=== PATIENT | male | born 1960 | race Caucasian/White ===

== ENCOUNTER 2016-07-17 07:35 | Emergency (ER) | payer SELFPAY ==
[~2016-07-17] VITALS: Ht 162.6 cm; Wt 64.5 kg
[~2016-07-17 07:35] MED LIST: HYOS0.129 PO; PROT40TA PO
[2016-07-17 07:43] VITALS: BP 123/93; PULSE 118; RESP 16; TEMP 97.6; O2SAT 96
[2016-07-17] MEDS ORDERED: ACETAMINOPHEN/HYDROcodone 325 MG/5 MG TAB PO ONE (08:30)
[2016-07-17] MEDS ORDERED: NAPROXEN 500 MG TAB PO ONE (08:30)
[2016-07-17] MEDS ORDERED: HYDR-3533 PO (08:41)
[2016-07-17] MEDS ORDERED: NAPR500 PO (08:41)
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
--- NOTE | 2016-07-17 09:04 | RADHPO ---
EXAM DATE/TIME: 07/17/2016 08:33 [place] COMPARISON: No previous studies available for comparison. INDICATIONS : Right shoulder pain, limited ROM , from fall 1 week ago MEDICAL HISTORY : torn rotator cuff SURGICAL HISTORY : None. ENCOUNTER: Initial ACUITY: 1 week PAIN SCORE: 10/10 LOCATION: Right shoulder FINDINGS: Multiple view examination of the right shoulder demonstrates no evidence of fracture or dislocation. The glenohumeral and acromioclavicular joints are maintained. There is normal range of motion betwe en internal and external rotation. Bony mineralization is normal. CONCLUSION: No acute fracture. Teofilo Barakat MD on July 17, 2016 at 9:02 Board Certified Radiologist. This report was verified electronically.
== END 2016-07-17 09:24 | disposition home or self-care (01) ==
LOC: PHED 07:35
DX: S49.91XA Unspecified injury of right shoulder and upper arm, initial encounter (principal); F17.210 Nicotine dependence, cigarettes, uncomplicated; W18.09XA Striking against other object with subsequent fall, initial encounter
CPT/HCPCS: 73030; 99283

== ENCOUNTER 2016-11-30 14:00 | Emergency (ER) | payer SELFPAY ==
[~2016-11-30] VITALS: Ht 165.1 cm; Wt 62.6 kg
[~2016-11-30 14:00] MED LIST changes: +HYDR-3533 PO; -HYOS0.129 PO; +NAPR500 PO; -PROT40TA PO
[2016-11-30 14:02] VITALS: BP 128/85; PULSE 129; RESP 16; TEMP 98.4; O2SAT 98
[2016-11-30 14:14] VITALS: BP 152/87; PULSE 123; RESP 20; O2SAT 96; O2SAT 98
[2016-11-30] MEDS ORDERED: SODIUM CHLOR 0.9% 1000 ML INJ 1,000 ML IV SCH (14:27)
[2016-11-30] MEDS ORDERED: SODIUM CHLORIDE 0.9% FLUSH 10 ML FLUSH IV FLUSH PRN (14:30)
--- NOTE | 2016-11-30 14:32 | PD ---
HPI Chief Complaint: Pain: Acute or Chronic Time Seen by Provider: 14:20 Travel History International Travel<30 days: No Contact w/Intl Traveler<30days: No Traveled to known affect area: No History of Present Illness HPI 55-year-old male here for evaluation of carpal pedal spasms. Patient reports spasms in his lower extremities for the last 2-3 months which have been intermittent. Over the last 2 weeks he has been experiencing them in his hands and forearms, worse over the last couple of days. Today he was more concerned because he started feeling spasm sensation in his neck and chest yesterday evening which is also intermittent. Patient used to drink about a pint of whiskey daily, however stopped drinking 4 days ago. He also used to take Lortab frequently, and stopped 10 days ago. He denies using any other illicit drugs. He does smoke about a pack of cigarettes daily. No fevers or recent illness. PFSH Past Medical History Hx Anticoagulant Therapy: No Anxiety: Yes Depression: Yes Diabetes: No Diminished Hearing: No Gastrointestinal Disorders: No Musculoskeletal: Yes (BILAT CARPAL TUNNEL, LOWER BACK INJURY CORRECTION) Immunizations Current: Yes Tetanus Vaccination: > 5 Years Influenza Vaccination: No Past Surgical History Abdominal Surgery: No Neurologic Surgery: No Other Surgery: Yes ("left carpal tunnel") Social History Alcohol Use: Yes (DAILY NOT FOR 5 DAYS) Tobacco Use: Yes (1 PPD) Substance Use: Yes (OPIATES) Allergies-Medications (Allergen,Severity, Reaction): Coded Allergies: Codeine (Verified Adverse Reaction, Intermediate, Hives, 11/30/16) Reported Meds & Prescriptions Reported Meds & Active Scripts Active No Active Prescriptions or Reported Medications Review of Systems Except as stated in HPI: all other systems reviewed are Neg Physical Exam Narrative GENERAL: Well-developed, well-nourished, no apparent distress. SKIN: Focused skin assessment warm/dry. No rash. HEAD: Atraumatic. Normocephalic. EYES: Pupils equal and round. No scleral icterus. No injection or drainage. ENT: Mucous membranes pink and moist. NECK: Trachea midline. No JVD. CARDIOVASCULAR: Regular rate and rhythm. Distal pulses brisk and equal bilaterally. RESPIRATORY: No accessory muscle use. Clear to auscultation. Breath sounds equal bilaterally. GASTROINTESTINAL: Abdomen soft, non-tender, nondistended. MUSCULOSKELETAL: No obvious deformities. No clubbing. No cyanosis. No edema. NEUROLOGICAL: Awake and alert. No obvious cranial nerve deficits. Motor grossly within normal limits. Normal speech. PSYCHIATRIC: Appropriate mood and affect; insight and judgment normal. Data Data Last Documented VS Vital Signs Date Time Temp Pulse Resp B/P Pulse Ox O2 Delivery O2 Flow Rate FiO2 11/30/16 15:27 91 18 152/87 98 Room Air 11/30/16 14:02 98.4 Orders Complete Blood Count With Diff (11/30/16 14:27) Comprehensive Metabolic Panel (11/30/16 14:27) Iv Access Insert/Monitor (11/30/16 14:27) Ecg Monitoring (11/30/16 14:27) Oximetry (11/30/16 14:27) Sodium Chlor 0.9% 1000 Ml Inj (Ns 1000 M (11/30/16 14:27) Sodium Chloride 0.9% Flush (Ns Flush) (11/30/16 14:30) Electrocardiogram (11/30/16 14:27) Magnesium (Mg) (11/30/16 14:27) Thyroid Stimulating Hormone (11/30/16 14:27) Alcohol (Ethanol) (11/30/16 14:27) Drug Screen, Random Urine (11/30/16 14:27) Ckmb (Isoenzyme) Profile (11/30/16 14:27) Troponin I (11/30/16 14:27) CKMB (11/30/16 14:30) CKMB% (11/30/16 14:30) Sodium Chlor 0.9% 1000 Ml Inj (Ns 1000 M (11/30/16 15:15) Labs Laboratory Tests Test 11/30/16 11/30/16 14:30 14:40 White Blood Count 7.3 TH/MM3 Red Blood Count 4.07 MIL/MM3 Hemoglobin 13.6 GM/DL Hematocrit 41.0 % Mean Corpuscular Volume 100.8 FL Mean Corpuscular Hemoglobin 33.4 PG Mean Corpuscular Hemoglobin 33.1 % Concent Red Cell Distribution Width 12.5 % Platelet Count 129 TH/MM3 Mean Platelet Volume 8.5 FL Neutrophils (%) (Auto) 50.1 % Lymphocytes (%) (Auto) 29.6 % Monocytes (%) (Auto) 18.9 % Eosinophils (%) (Auto) 0.4 % Basophils (%) (Auto) 1.0 % Neutrophils # (Auto) 3.6 TH/MM3 Lymphocytes # (Auto) 2.2 TH/MM3 Monocytes # (Auto) 1.4 TH/MM3 Eosinophils # (Auto) 0.0 TH/MM3 Basophils # (Auto) 0.1 TH/MM3 CBC Comment DIFF FINAL Differential Comment Sodium Level 140 MEQ/L Potassium Level 3.7 MEQ/L Chloride Level 106 MEQ/L Carbon Dioxide Level 22.1 MEQ/L Anion Gap 12 MEQ/L Blood Urea Nitrogen 7 MG/DL Creatinine 0.77 MG/DL Estimat Glomerular Filtration 106 ML/MIN Rate Random Glucose 95 MG/DL Calcium Level 8.9 MG/DL Magnesium Level 2.3 MG/DL Total Bilirubin 1.2 MG/DL Aspartate Amino Transf 176 U/L (AST/SGOT) Alanine Aminotransferase 110 U/L (ALT/SGPT) Alkaline Phosphatase 103 U/L Total Creatine Kinase 189 U/L Creatine Kinase MB 3.0 NG/ML Troponin I LESS THAN 0.02 NG/ML Total Protein 8.5 GM/DL Albumin 3.5 GM/DL Thyroid Stimulating Hormone 0.462 uIU/ML 3rd Gen Ethyl Alcohol Level LESS THAN 3 MG/DL Urine Opiates Screen NEG Urine Barbiturates Screen NEG Urine Amphetamines Screen NEG Urine Benzodiazepines Screen NEG Urine Cocaine Screen NEG Urine Cannabinoids Screen NEG MDM Medical Decision Making Medical Screen Exam Complete: Yes Emergency Medical Condition: Yes Medical Record Reviewed: Yes Interpretation(s) EKG: Sinus, rate 97, normal axis, normal intervals, no acute ischemic abnormality. Differential Diagnosis Carpal pedal spasms, metabolic abnormality, anxiety, ACS less likely, etoh withdrawal Narrative Course Initial vital signs show heart rate 129, blood pressure 128/85, pulse ox 98% on room air, oral temp of 98.4F. CBC shows WBC 7.3, hemoglobin 13.6, hematocrit 41, platelets 129, MCV 100.8. CMP is remarkable for TB bili 1.2, AST 176, ALT 110, otherwise unremarkable. Cardiac enzymes are negative. TSH is 0.62. Urine drug screen is negative for all drugs tested. Alcohol level is negative. Patient was made aware of all findings. He is resting comfortably. He did have a couple episodes of carpal and pedal spasms while in the emergency department. His heart rate improved from 129 to 88 after a liter of normal saline IV. He is not splinting any physical signs of alcohol withdrawal. I do not believe his symptoms are cardiac related. He is overall very well- appearing. He is stable for discharge home with outpatient follow-up with a primary care physician this week. I'll give him a prescription for Ativan should he experience further episodes of carpal pedal spasms or alcohol withdrawal symptoms. He was informed on when to return to the emergency department. He verbalizes understanding and agreement with plan. Diagnosis Primary Impression: Spasms of the hands or feet Referrals: Primary Care Physician 3 days Additional Instructions: Follow-up with a primary care physician this week. Stay hydrated with plenty of fluids. Return to the emergency department for worsening symptoms or any other concerns. Scripts Lorazepam (Ativan)0.5 Mg Tab0.5 Mg PO Q8H PRN (ANXIETY AND/OR AGITATION) #12 TAB Ref 0 Prov:Edil Jacinto MD 11/30/16 Disposition: 01 DISCHARGE HOME Condition: Stable Edil Jacinto MD Nov 30, 2016 14:32
[2016-11-30 14:47] LABS: AUTOMATED NEUTROPHIL # 3.6 TH/MM3 (1.8-7.7); BASOPHIL # 0.1 TH/MM3 (0-0.2); EOSINOPHIL % 0.4 % (0.0-4.0); HEMO FLAGS DIFF FINAL; LYMPH % 29.6 % (9.0-44.0); LYMPHOCYTE # 2.2 TH/MM3 (1.0-4.8); MEAN CELL VOLUME 100.8 FL (80.0-100.0); MEAN CORPUSCULAR HEMOGLOBIN 33.4 PG (27.0-34.0); MEAN CORPUSCULAR HGB CONC 33.1 % (32.0-36.0); MONO % 18.9 % (0.0-8.0); NEUT % 50.1 % (16.0-70.0); PLATELET COUNT 129 TH/MM3 (150-450); RED BLOOD COUNT 4.07 MIL/MM3 (4.50-5.90); RED CELL DISTRIBUTION WIDTH 12.5 % (11.6-17.2); WHITE BLOOD COUNT 7.3 TH/MM3 (4.0-11.0)
[2016-11-30 14:56] LABS: CHLORIDE 106 MEQ/L (98-107); POTASSIUM 3.7 MEQ/L (3.5-5.1); SODIUM (NA) 140 MEQ/L (136-145)
[2016-11-30 14:58] LABS: AMPHETAMINE, URINE NEG (NEG); BARBITURATES, URINE NEG (NEG)
[2016-11-30 14:59] LABS: COCAINE, URINE NEG (NEG)
[2016-11-30 15:00] LABS: ANION GAP 12 MEQ/L (5-15); BICARBONATE 22.1 MEQ/L (21.0-32.0); BLOOD UREA NITROGEN 7 MG/DL (7-18); MAGNESIUM 2.3 MG/DL (1.5-2.5)
[2016-11-30 15:03] LABS: ALT (GPT) 110 U/L (12-78); AST (GOT) 176 U/L (15-37); GLOMERULAR FILTRATION RATE 106 ML/MIN (>89)
[2016-11-30 15:04] LABS: TOTAL BILIRUBIN ADULT 1.2 MG/DL (0.2-1.0)
[2016-11-30 15:05] LABS: CREATINE KINASE 189 U/L (39-308)
[2016-11-30 15:06] LABS: ALKALINE PHOSPHATASE 103 U/L (45-117)
[2016-11-30] MEDS ORDERED: SODIUM CHLOR 0.9% 1000 ML INJ 1,000 ML IV ONE (15:15)
[2016-11-30 15:27] VITALS: BP 152/87; PULSE 91; RESP 18; O2SAT 98
[2016-11-30] MEDS ORDERED: LORA-392 PO (15:47)
[2016-11-30 16:02] VITALS: BP 145/82; PULSE 87; RESP 18; O2SAT 100
--- NOTE | 2016-11-30 16:44 | EKG ---
Date Performed: 11/30/2016 Time Performed: 14:52:35 PTAGE: 55 years EKG: Sinus rhythm NORMAL ECG PREVIOUS TRACING : 02/26/2014 10.14 No significant change from previous tracing noted. DOCTOR: Adriano England Interpretating Date/Time 11/30/2016 16:42:57
== END 2016-11-30 16:20 | disposition home or self-care (01) ==
LOC: PHED 14:00
DX: M62.838 Other muscle spasm (principal); F17.210 Nicotine dependence, cigarettes, uncomplicated; G56.03 Carpal tunnel syndrome, bilateral upper limbs
CPT/HCPCS: 80053; 80307; 82550; 82552; 83735; 84443; 84484; 85025; 93005; 96360; 96361; 99284; J7030

== ENCOUNTER 2017-01-27 14:41 | Emergency (ER) | payer SELFPAY ==
[~2017-01-27] VITALS: Ht 162.6 cm; Wt 62.0 kg
[~2017-01-27 14:41] MED LIST changes: -HYDR-3533 PO; +LORA-392 PO; -NAPR500 PO
[2017-01-27 14:43] VITALS: BP 149/82; PULSE 135; RESP 16; TEMP 99; O2SAT 100
[2017-01-27 14:45] VITALS: BP 139/102; O2SAT 95
--- NOTE | 2017-01-27 14:46 | PD ---
Physical Exam Date Seen by Provider: Jan 27, 2017 Time Seen by Provider: 14:46 Narrative 56 YOWM MED CLEARANCE FOR DETOX VS REVIEWED WAITING FOR BED PLACEMENT Data Data Last Documented VS Vital Signs Date Time Temp Pulse Resp B/P Pulse Ox O2 Delivery O2 Flow Rate FiO2 01/27/17 14:43 99.0 135 16 149/82 100 MDM Supervised Visit with MONA: Sherif Guardado Jan 27, 2017 14:46
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
[2017-01-27] MEDS ORDERED: KETOROLAC TROMETHAMINE 30 MG/ML (IVP) VIAL IV PUSH ONE (17:00)
[2017-01-27] MEDS ORDERED: NORC5TAB PO (17:00)
[2017-01-27] MEDS ORDERED: SODIUM CHLOR 0.9% 1000 ML INJ 1,000 ML IV ONE (17:00)
[2017-01-27 17:50] LABS: BLOOD, URINE MOD (NEG); COMMENT (UR) CULT NOT INDICATED; CULTURE IF INDICATED CULT NOT INDICATED; GLUCOSE,URINE NEG (NEG); HYALINE CAST, URINE 16 /lpf (RARE); KETONE, URINE NEG (NEG); MUCUS URINE FEW /lpf (OCC); NITRITE,URINE NEG (NEG); PH, URINE 5.5 (5.0-8.5); URINE COLOR YELLOW (YELLW/STRAW)
[2017-01-27 18:17] LABS: ANION GAP 7 MEQ/L (5-15); AST (GOT) 181 U/L (15-37); BICARBONATE 29.8 MEQ/L (21.0-32.0); BLOOD UREA NITROGEN 4 MG/DL (7-18); CHLORIDE 102 MEQ/L (98-107); GLOMERULAR FILTRATION RATE 122 ML/MIN (>89); SODIUM (NA) 139 MEQ/L (136-145)
[2017-01-27 18:18] LABS: ALT (GPT) 75 U/L (12-78)
[2017-01-27 18:20] LABS: ALKALINE PHOSPHATASE 93 U/L (45-117); TOTAL BILIRUBIN ADULT 0.8 MG/DL (0.2-1.0)
[2017-01-27 18:26] LABS: ALCOHOL 256 MG/DL (0-5)
[2017-01-27 18:30] LABS: BASOPHIL # 0.1 TH/MM3 (0-0.2); EOSINOPHIL # 0.1 TH/MM3 (0-0.4); EOSINOPHIL % 1.3 % (0.0-4.0); HEMATOCRIT 44.4 % (39.0-51.0); HEMO FLAGS AUTO DIFF; LYMPH % 39.4 % (9.0-44.0); LYMPHOCYTE # 2.5 TH/MM3 (1.0-4.8); MEAN CELL VOLUME 96.7 FL (80.0-100.0); MEAN CORPUSCULAR HEMOGLOBIN 33.9 PG (27.0-34.0); MEAN CORPUSCULAR HGB CONC 35.1 % (32.0-36.0); MONO % 12.1 % (0.0-8.0); NEUT % 46.2 % (16.0-70.0); PLATELET COUNT 50 TH/MM3 (150-450); RED BLOOD COUNT 4.59 MIL/MM3 (4.50-5.90); WHITE BLOOD COUNT 6.4 TH/MM3 (4.0-11.0)
[2017-01-27 18:42] LABS: PLATELET ESTIMATE SMEAR LOW (NORMAL); PLATELET MORPHOLOGY NORMAL (NORMAL); SCAN/DIFF AUTO DIFF CONFIRMED
[2017-01-27 18:43] VITALS: BP 172/111; PULSE 104; RESP 16; O2SAT 98
[2017-01-27] MEDS ORDERED: POTASSIUM CHLORIDE 10 MEQ CONTROLLED RELEASE TAB PO ONE (19:00)
== END 2017-01-27 19:39 | disposition home or self-care (01) ==
LOC: NEPD 14:41
DX: F10.10 Alcohol abuse, uncomplicated (principal); E87.6 Hypokalemia; R31.9 Hematuria, unspecified; M25.511 Pain in right shoulder; F41.9 Anxiety disorder, unspecified; F32.9 Major depressive disorder, single episode, unspecified; F17.200 Nicotine dependence, unspecified, uncomplicated
CPT/HCPCS: 80053; 80307; 81001; 85025; 96361; 96374; 99284; J1885; J7030

== ENCOUNTER 2017-02-16 00:23 | Emergency (ER) | payer OTHER ==
[~2017-02-16 00:23] MED LIST changes: -LORA-392 PO; +NORC5TAB PO
[2017-02-16 00:43] VITALS: BP 143/97; PULSE 79; RESP 18; TEMP 98
[2017-02-16 01:08] VITALS: BP 149/94; PULSE 104; RESP 20; TEMP 98.1; O2SAT 96
[2017-02-16] MEDS ORDERED: KETOROLAC TROMETHAMINE 60 MG/2 ML (IM) VIAL IM ONE (01:30)
[2017-02-16 01:34] LABS: AUTOMATED NEUTROPHIL # 3.6 TH/MM3 (1.8-7.7); BASOPHIL # 0.1 TH/MM3 (0-0.2); BASOPHIL % 0.9 % (0.0-2.0); BLOOD, URINE TRACE (NEG); CALCIUM OXALATE CRYSTALS,URINE OCC /hpf; EOSINOPHIL # 0.1 TH/MM3 (0-0.4); EOSINOPHIL % 1.4 % (0.0-4.0); GLUCOSE,URINE NEG (NEG); HEMATOCRIT 51.2 % (39.0-51.0); HEMO FLAGS DIFF FINAL; HYALINE CAST, URINE 27 /lpf (RARE); KETONE, URINE NEG (NEG); LYMPH % 43.5 % (9.0-44.0); LYMPHOCYTE # 3.8 TH/MM3 (1.0-4.8); MEAN CELL VOLUME 96.9 FL (80.0-100.0); MEAN CORPUSCULAR HEMOGLOBIN 33.1 PG (27.0-34.0); MEAN CORPUSCULAR HGB CONC 34.2 % (32.0-36.0); MONO % 12.6 % (0.0-8.0); MUCUS URINE FEW /lpf (OCC); NEUT % 41.6 % (16.0-70.0); NITRITE,URINE NEG (NEG); PH, URINE 5.5 (5.0-8.5); PLATELET COUNT 134 TH/MM3 (150-450); RED BLOOD COUNT 5.28 MIL/MM3 (4.50-5.90); RED CELL DISTRIBUTION WIDTH 13.5 % (11.6-17.2); SQUAMOUS EPITHELIAL CELL URINE 1 /hpf (0-5); URINE COLOR YELLOW (YELLW/STRAW); WHITE BLOOD COUNT 8.8 TH/MM3 (4.0-11.0)
[2017-02-16 01:35] LABS: COMMENT (UR) CULT NOT INDICATED; CULTURE IF INDICATED CULT NOT INDICATED
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
[2017-02-16 01:53] LABS: ALT (GPT) 99 U/L (12-78); ANION GAP 9 MEQ/L (5-15); AST (GOT) 220 U/L (15-37); BICARBONATE 25.4 MEQ/L (21.0-32.0); BLOOD UREA NITROGEN 4 MG/DL (7-18); CHLORIDE 107 MEQ/L (98-107); GLOMERULAR FILTRATION RATE 102 ML/MIN (>89); POTASSIUM 3.5 MEQ/L (3.5-5.1); SODIUM (NA) 141 MEQ/L (136-145)
[2017-02-16 01:57] LABS: ALKALINE PHOSPHATASE 111 U/L (45-117); TOTAL BILIRUBIN ADULT 0.4 MG/DL (0.2-1.0)
[2017-02-16 02:04] LABS: ALCOHOL 335 MG/DL (0-5)
[2017-02-16] MEDS ORDERED: ACETAMINOPHEN 325 MG TAB PO ONE (02:45)
[2017-02-16] MEDS ORDERED: LORazepam 2 MG/ML VIAL IV PUSH PRN ×4 (03:15)
[2017-02-16] MEDS ORDERED: LORazepam 1 MG TAB PO PRN (03:15)
[2017-02-16] MEDS ORDERED: LORazepam 2 MG TAB PO PRN (03:15)
[2017-02-16] MEDS ORDERED: FLUMAZENIL 0.5 MG/5 ML VIAL IV PUSH PRN (03:15)
[2017-02-16 06:23] VITALS: BP 145/86; PULSE 102; RESP 18; O2SAT 99
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
--- NOTE | 2017-02-16 10:57 | PD ---
Physical Exam Time Seen by Provider: 10:[address] Garcia evaluated the patient and lifted the Hadley act and the patient will be discharged home. Data Data Last Documented VS Vital Signs Date Time Temp Pulse Resp B/P (MAP) Pulse Ox O2 Delivery O2 Flow Rate FiO2 02/16/17 06:23 102 18 145/86 (105) 99 Room Air 02/16/17 01:08 98.1 Orders Orders Complete Blood Count With Diff (02/16/17 00:55) Comprehensive Metabolic Panel (02/16/17 00:55) Urinalysis - C+S If Indicated (02/16/17 00:55) Psych Screen (02/16/17 00:55) Drug Screen, Random Urine (02/16/17 00:55) Alcohol (Ethanol) (02/16/17 00:55) Ketorolac Inj (Toradol Inj) (02/16/17 01:30) Acetaminophen (Tylenol) (02/16/17 02:45) Alcohol Withdrawal Asmt-Ciwa ONCE (02/16/17 03:07) Flumazenil Inj (Romazicon Inj) (02/16/17 03:15) Lorazepam (Ativan) (02/16/17 03:15) Lorazepam Inj (Ativan Inj) (02/16/17 03:15) Lorazepam (Ativan) (02/16/17 03:15) Lorazepam Inj (Ativan Inj) (02/16/17 03:15) Lorazepam Inj (Ativan Inj) (02/16/17 03:15) Lorazepam Inj (Ativan Inj) (02/16/17 03:15) Diet Regular Basic (02/16/17 Breakfast) Labs Laboratory Tests Test 02/16/17 00:45 White Blood Count 8.8 TH/MM3 Red Blood Count 5.28 MIL/MM3 Hemoglobin 17.5 GM/DL Hematocrit 51.2 % Mean Corpuscular Volume 96.9 FL Mean Corpuscular Hemoglobin 33.1 PG Mean Corpuscular Hemoglobin Concent 34.2 % Red Cell Distribution Width 13.5 % Platelet Count 134 TH/MM3 Mean Platelet Volume 9.0 FL Neutrophils (%) (Auto) 41.6 % Lymphocytes (%) (Auto) 43.5 % Monocytes (%) (Auto) 12.6 % Eosinophils (%) (Auto) 1.4 % Basophils (%) (Auto) 0.9 % Neutrophils # (Auto) 3.6 TH/MM3 Lymphocytes # (Auto) 3.8 TH/MM3 Monocytes # (Auto) 1.1 TH/MM3 Eosinophils # (Auto) 0.1 TH/MM3 Basophils # (Auto) 0.1 TH/MM3 CBC Comment DIFF FINAL Differential Comment Urine Color YELLOW Urine Turbidity HAZY Urine pH 5.5 Urine Specific [place] 1.018 Urine Protein TRACE mg/dL Urine Glucose (UA) NEG mg/dL Urine Ketones NEG mg/dL Urine Occult Blood TRACE Urine Nitrite NEG Urine Bilirubin NEG Urine Urobilinogen LESS THAN 2.0 MG/DL Urine Leukocyte Esterase TRACE Urine RBC 1 /hpf Urine WBC 5 /hpf Urine Squamous Epithelial Cells 1 /hpf Urine Calcium Oxalate Crystals OCC /hpf Urine Hyaline Casts 27 /lpf Urine Mucus FEW /lpf Microscopic Urinalysis Comment CULT NOT INDICATED Blood Urea Nitrogen 4 MG/DL Creatinine 0.79 MG/DL Random Glucose 118 MG/DL Total Protein 9.6 GM/DL Albumin 3.5 GM/DL Calcium Level 8.7 MG/DL Alkaline Phosphatase 111 U/L Aspartate Amino Transf (AST/SGOT) 220 U/L Alanine Aminotransferase (ALT/SGPT) 99 U/L Total Bilirubin 0.4 MG/DL Sodium Level 141 MEQ/L Potassium Level 3.5 MEQ/L Chloride Level 107 MEQ/L Carbon Dioxide Level 25.4 MEQ/L Anion Gap 9 MEQ/L Estimat Glomerular Filtration Rate 102 ML/MIN Urine Opiates Screen NEG Urine Barbiturates Screen NEG Urine Amphetamines Screen NEG Urine Benzodiazepines Screen POS Urine Cocaine Screen NEG Urine Cannabinoids Screen NEG Ethyl Alcohol Level 335 MG/DL [facility] Supervised Visit with MONA: No Narrative Course Dr. Garcia evaluated the patient and lifted the Hadley act and the patient will be discharged home. The patient has contracted safety and denies suicidal and homicidal ideations at this time. He says he will follow-up by going to meetings. He just currently left [facility] and has that as another community resource. Patient is medically cleared for discharge. Diagnosis Primary Impression: Medical clearance for psychiatric admission Additional Impression: Alcohol intoxication Qualified Codes: F10.920 - Alcohol use, unspecified with intoxication, uncomplicated Referrals[facility] Patient Instructions: Abuse of Alcohol (ED), Alcohol Dependence (ED), Alcohol Intoxication (ED), General Instructions, Mood Disorders (ED) Additional Instruction: Contract safety to your self and others Follow-up with psychiatry Follow-up with primary care provider Follow-up with Tee Bains Return to the emergency department immediately with worsening of symptoms Med/Other Pt SpecificInfo: No Meds Exist/No RX given Disposition: 01 DISCHARGE HOME Condition: Stable Joycelyn Cabrera [facility] Feb 16, 2017 10:57
[2017-02-16 11:03] VITALS: BP 145/86; PULSE 102; RESP 18; O2SAT 99
[2017-02-16 12:34] VITALS: BP 147/89; PULSE 86; RESP 18
== END 2017-02-16 12:36 | disposition home or self-care (01) ==
LOC: NEPD 00:23 → NEPJ 12:36
DX: F10.129 Alcohol abuse with intoxication, unspecified (principal); F43.25 Adjustment disorder with mixed disturbance of emotions and conduct; F41.9 Anxiety disorder, unspecified; F32.9 Major depressive disorder, single episode, unspecified; M25.512 Pain in left shoulder; M25.511 Pain in right shoulder; G89.29 Other chronic pain; G56.03 Carpal tunnel syndrome, bilateral upper limbs; F17.200 Nicotine dependence, unspecified, uncomplicated
CPT/HCPCS: 80053; 80307; 81001; 85025; 96372; 99284; J1885

== ENCOUNTER 2017-08-24 19:15 | Emergency (ER) | payer SELFPAY ==
[~2017-08-24] VITALS: Ht 167.6 cm; Wt 66.0 kg
[2017-08-24] MEDS ORDERED: SODIUM CHLOR 0.9% 1000 ML INJ 1,000 ML IV SCH (19:19)
[2017-08-24 19:20] VITALS: BP 150/105; PULSE 114; RESP 20; TEMP 98.6; O2SAT 93
[2017-08-24 19:26] VITALS: O2SAT 96
[2017-08-24] MEDS ORDERED: SODIUM CHLORIDE 0.9% FLUSH 10 ML FLUSH IV FLUSH PRN (19:30)
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
[2017-08-24 20:03] LABS: AUTOMATED NEUTROPHIL # 3.1 TH/MM3 (1.8-7.7); BASOPHIL # 0.2 TH/MM3 (0-0.2); BASOPHIL % 1.9 % (0.0-2.0); EOSINOPHIL % 0.6 % (0.0-4.0); HEMATOCRIT 48.8 % (39.0-51.0); HEMOGLOBIN 16.5 GM/DL (13.0-17.0); LYMPH % 48.2 % (9.0-44.0); LYMPHOCYTE # 3.8 TH/MM3 (1.0-4.8); MEAN CELL VOLUME 96.9 FL (80.0-100.0); MEAN CORPUSCULAR HEMOGLOBIN 32.7 PG (27.0-34.0); MEAN CORPUSCULAR HGB CONC 33.7 % (32.0-36.0); MEAN PLATELET VOLUME 8.3 FL (7.0-11.0); MONO % 10.6 % (0.0-8.0); MONOCYTE # 0.8 TH/MM3 (0-0.9); NEUT % 38.7 % (16.0-70.0); PLATELET COUNT 129 TH/MM3 (150-450); RED BLOOD COUNT 5.04 MIL/MM3 (4.50-5.90); WHITE BLOOD COUNT 7.9 TH/MM3 (4.0-11.0)
[2017-08-24 20:11] LABS: CHLORIDE 107 MEQ/L (98-107); SODIUM (NA) 142 MEQ/L (136-145)
[2017-08-24 20:16] LABS: ALBUMIN 3.4 GM/DL (3.4-5.0); BICARBONATE 24.7 MEQ/L (21.0-32.0); BLOOD UREA NITROGEN 7 MG/DL (7-18); CALCIUM 8.4 MG/DL (8.5-10.1); GLUCOSE,RANDOM 159 MG/DL (74-106)
[2017-08-24 20:19] LABS: ALT (GPT) 179 U/L (12-78); AST (GOT) 301 U/L (15-37); CREATININE 0.76 MG/DL (0.60-1.30); GLOMERULAR FILTRATION RATE 107 ML/MIN (>89)
[2017-08-24 20:21] LABS: TOTAL BILIRUBIN ADULT 0.3 MG/DL (0.2-1.0); TOTAL PROTEIN 9.1 GM/DL (6.4-8.2)
[2017-08-24 20:22] LABS: ALKALINE PHOSPHATASE 121 U/L (45-117)
[2017-08-24 20:25] VITALS: BP 161/99; PULSE 113; RESP 16; O2SAT 96
--- NOTE | 2017-08-24 20:46 | RADRPT ---
EXAM DATE/TIME: 08/24/2017 20:24 [facility] COMPARISON: No previous studies available for comparison. INDICATIONS : Chest discomfort, possible syncopal episode MEDICAL HISTORY : None. SURGICAL HISTORY : None. ENCOUNTER: Initial ACUITY: 1 day PAIN SCORE: Non-responsive. LOCATION: Bilateral chest FINDINGS: A single view of the chest demonstrates the lungs to be symmetrically aerated without evidence of mas s, infiltrate or effusion. The cardiomediastinal contours are unremarkable. Osseous structures are grossly intact. CONCLUSION: No acute cardiopulmonary disease demonstrated. Matthew Palacio MD on August 24, 2017 at 20:44 Board Certified Radiologist. This report was verified electronically.
[2017-08-24 21:17] VITALS: BP 170/101; PULSE 96; RESP 18; O2SAT 97
[2017-08-24 22:54] VITALS: BP 137/87; PULSE 107; RESP 20; O2SAT 95
[2017-08-25 00:48] VITALS: BP 171/92; PULSE 98; RESP 18; O2SAT 96
[2017-08-25 00:51] VITALS: O2SAT 95
== END 2017-08-25 01:07 | disposition home or self-care (01) ==
LOC: PHED 19:15
DX: F10.229 Alcohol dependence with intoxication, unspecified (principal); F17.200 Nicotine dependence, unspecified, uncomplicated; Y90.8 Blood alcohol level of 240 mg/100 ml or more
CPT/HCPCS: 71045; 80053; 80307; 85025; 96360; 96361; 99284; J7030

== ENCOUNTER 2017-08-25 13:26 | Emergency (ER) | payer SELFPAY ==
[~2017-08-25] VITALS: Ht 170.2 cm; Wt 69.0 kg
[2017-08-25 13:37] VITALS: BP 162/94; PULSE 100; RESP 16; TEMP 98; O2SAT 95
== END 2017-08-25 14:44 | disposition left against medical advice (07) ==
LOC: PHED 13:26
DX: Z53.21 Procedure and treatment not carried out due to patient leaving prior to being seen by health care provider (principal)

== ENCOUNTER 2017-08-26 20:06 | Emergency (ER) | payer SELFPAY ==
[~2017-08-26] VITALS: Ht 160 cm; Wt 65.0 kg
[2017-08-26 21:13] VITALS: BP 178/90; PULSE 104; RESP 16; TEMP 98.9; O2SAT 99
== END 2017-08-26 22:38 | disposition left against medical advice (07) ==
LOC: NED 20:06
DX: Z03.89 Encounter for observation for other suspected diseases and conditions ruled out (principal)
CPT/HCPCS: 99281

== ENCOUNTER 2017-08-30 22:42 | Emergency (ER) | payer OTHER ==
[~2017-08-30] VITALS: Ht 167.6 cm; Wt 67.0 kg
[2017-08-30] MEDS ORDERED: SODIUM CHLOR 0.9% 1000 ML INJ 1,000 ML IV SCH (23:00)
[2017-08-30] MEDS ORDERED: ONDANSETRON HCL 4 MG/2 ML VIAL IVP ONE (23:00)
[2017-08-30] MEDS ORDERED: KETOROLAC TROMETHAMINE 30 MG/ML (IVP) VIAL IVP ONE (23:00)
[2017-08-30] MEDS ORDERED: SODIUM CHLORIDE 0.9% FLUSH 10 ML FLUSH IV FLUSH PRN (23:00)
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
[2017-08-30 23:11] VITALS: BP 141/67; PULSE 89; RESP 21; TEMP 98.9; O2SAT 97
--- NOTE | 2017-08-30 23:22 | RADRPT ---
EXAM DATE/TIME: 08/30/2017 23:12 [facility] COMPARISON: CHEST SINGLE AP, August 24, 2017, 20:24. INDICATIONS : Chest pain. MEDICAL HISTORY : None. SURGICAL HISTORY : None. ENCOUNTER: Initial ACUITY: 1 day PAIN SCORE: 8/10 LOCATION: Left chest FINDINGS: A single view of the chest demonstrates the lungs to be symmetrically aerated without evidence of mas s, infiltrate or effusion. No evidence of pneumothorax. The cardiomediastinal contours are unremark able. Osseous structures are intact. CONCLUSION: The lungs are clear. Cheko Maldonado MD on August 30, 2017 at 23:20 Board Certified Radiologist. This report was verified electronically.
[2017-08-30 23:48] LABS: ALBUMIN 3.3 GM/DL (3.4-5.0); ALKALINE PHOSPHATASE 151 U/L (45-117); ALT (GPT) 171 U/L (12-78); AST (GOT) 313 U/L (15-37); BLOOD UREA NITROGEN 7 MG/DL (7-18); CALCIUM 8.8 MG/DL (8.5-10.1); CHLORIDE 104 MEQ/L (98-107); CREATININE 0.75 MG/DL (0.60-1.30); GLOMERULAR FILTRATION RATE 109 ML/MIN (>89); GLUCOSE,RANDOM 134 MG/DL (74-106); SODIUM (NA) 141 MEQ/L (136-145); TOTAL BILIRUBIN ADULT 0.6 MG/DL (0.2-1.0); TOTAL PROTEIN 8.5 GM/DL (6.4-8.2)
[2017-08-31] MEDS ORDERED: POTASSIUM CHLORIDE 20 MEQ CONTROLLED RELEASE TAB PO ONE
[2017-08-31 08:04] VITALS: BP 157/100; PULSE 98; RESP 17; TEMP 98.8; O2SAT 97
--- NOTE | 2017-08-31 08:10 | PD ---
Physical Exam Time Seen by Provider: 08:08 Narrative See initial provider's note for history and physical. The patient is up and ambulating in the hallway. He is ready to be discharged. Patient is cleared for discharge. Data Data Last Documented VS Vital Signs Date Time Temp Pulse Resp B/P (MAP) Pulse Ox O2 Delivery O2 Flow Rate FiO2 08/31/17 08:04 98.8 98 17 157/100 (119) 97 Room Air Orders Orders Comprehensive Metabolic Panel (08/30/17 23:00) Lipase (08/30/17 23:00) Iv Access Insert/Monitor (08/30/17 23:00) Ecg Monitoring (08/30/17 23:00) Oximetry (08/30/17 23:00) Ondansetron Inj (Zofran Inj) (08/30/17 23:00) Sodium Chlor 0.9% 1000 Ml Inj (Ns 1000 M (08/30/17 23:00) Sodium Chloride 0.9% Flush (Ns Flush) (08/30/17 23:00) Chest, Single Ap (08/30/17 23:00) Ketorolac Inj (Toradol Inj) (08/30/17 23:00) Alcohol (Ethanol) (08/30/17 23:00) Potassium Chloride (Kcl) (08/31/17 00:00) Ibuprofen (Motrin) (08/31/17 08:15) Ed Discharge Order (08/31/17 08:08) Labs Laboratory Tests Test 08/30/17 22:45 Blood Urea Nitrogen 7 MG/DL Creatinine 0.75 MG/DL Random Glucose 134 MG/DL Total Protein 8.5 GM/DL Albumin 3.3 GM/DL Calcium Level 8.8 MG/DL Alkaline Phosphatase 151 U/L Aspartate Amino Transf (AST/SGOT) 313 U/L Alanine Aminotransferase (ALT/SGPT) 171 U/L Total Bilirubin 0.6 MG/DL Sodium Level 141 MEQ/L Potassium Level 3.1 MEQ/L Chloride Level 104 MEQ/L Carbon Dioxide Level 25.0 MEQ/L Anion Gap 12 MEQ/L Estimat Glomerular Filtration Rate 109 ML/MIN Lipase 255 U/L Ethyl Alcohol Level 304 MG/DL [facility] Supervised Visit with MONA: No Narrative Course See initial provider's note for history and physical. The patient is up and ambulating in the hallway. He is ready to be discharged. Patient is cleared for discharge. Diagnosis Primary Impression: Alcohol abuse Referrals: [facility] (Out patient) [facility] Primary Care Physician [facility] Patient Instructions: Abuse of Alcohol (ED), Alcohol Dependence (ED), Alcohol Intoxication (ED), General Instructions Additional Instruction: Decrease alcohol intake. Follow-up with her primary physician. Return if symptoms worsen or progress. Motrin as needed for pain. Med/Other Pt SpecificInfo: No Change to Meds, No Meds Exist/No RX given Scripts Unable to Obtain Active Prescriptions or Reported Meds Disposition: 01 DISCHARGE HOME Condition: Stable Joycelyn Cabrera Aug 31, 2017 08:10
[2017-08-31] MEDS ORDERED: IBUPROFEN 800 MG TAB PO ONE (08:15)
[2017-08-31 08:29] VITALS: BP 150/96; TEMP 97.8
== END 2017-08-31 08:35 | disposition home or self-care (01) ==
LOC: NEPD 22:42
DX: F10.129 Alcohol abuse with intoxication, unspecified (principal); M25.511 Pain in right shoulder; M25.512 Pain in left shoulder; F17.200 Nicotine dependence, unspecified, uncomplicated; Y90.8 Blood alcohol level of 240 mg/100 ml or more
CPT/HCPCS: 71045; 80053; 80307; 83690; 96361; 96374; 96375; 99284; J1885; J2405; J7030

== ENCOUNTER 2017-09-12 19:57 | Emergency (ER) | payer OTHER ==
[~2017-09-12] VITALS: Ht 165.1 cm; Wt 67.4 kg
[2017-09-12 20:39] VITALS: BP 124/83; PULSE 89; RESP 16; TEMP 97.7; O2SAT 96
[2017-09-12] MEDS ORDERED: KETOROLAC TROMETHAMINE 60 MG/2 ML (IM) VIAL IM ONE (21:15)
[2017-09-12] MEDS ORDERED: ORPHENADRINE INJ 60 MG/2 ML AMP IM ONE (21:15)
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
[2017-09-12] MEDS ORDERED: IBUP-232 PO (22:23)
[2017-09-12] MEDS ORDERED: CYCL10TA PO (22:23)
== END 2017-09-12 22:29 | disposition home or self-care (01) ==
LOC: PHEFT 19:57
DX: M54.5 Low back pain (principal); V23.9XXA Unspecified motorcycle rider injured in collision with car, pick-up truck or van in traffic accident, initial encounter; Y92.410 Unspecified street and highway as the place of occurrence of the external cause; F41.9 Anxiety disorder, unspecified; F32.9 Major depressive disorder, single episode, unspecified; F17.200 Nicotine dependence, unspecified, uncomplicated
CPT/HCPCS: 72100; 96372; 99283; J1885; J2360